=== PATIENT | male | born 1960 | race Caucasian/White ===

== ENCOUNTER 2016-12-27 21:19 | Emergency (ER) | payer OTHER ==
--- NOTE | ~2016-12-27 | CT4 ---
[facility] A Service of [facility] / [facility] RADIOLOGY TEXT RESULTS PATIENT: VLAD STEELE LOCATION: [facility] : 64 UNIT #: [id number] AGE: [address]: Airam Díaz MD SEX: M ORDER DR: [id number] [facility]. [place], [place] [address] [id number] MR#: [id number] Acc #: [id number] NAME: VLAD STEELE. : 1960 SEX: M STUDY DATE/TIME: 12/28/2016 0:05 UNIT: DEXTER ROOM: STUDY DESCRIPTION: CT Abd and Pelv Wo Cont Attending Physician: Airam Díaz M.D. Ordering Physician: Airam Díaz M.D. Primary Care Physician: No Primary Care Physician MEDICAL IMAGING REPORT This report is preliminary unless electronic signature is present EXAM CT scan of the abdomen and pelvis without contrast INDICATION Left-sided abdominal pressure and unable to urinate today. History of back surgery today. TECHNIQUE Axial 3 mm images were obtained through the abdomen and pelvis without IV or oral contrast. This CT exam was performed with one or more of the following radiation dose reduction techniques: Automatic exposure control, adjustment of mA and/or kV according to patient size, and iterative reconstruction. FINDINGS Lung bases are clear. The liver, gallbladder, spleen, pancreas, adrenal glands, and kidneys are normal in appearance. There are no ureteral stones. The aorta is normal in size. There is no adenopathy. The bowel is normal in appearance. The bladder has a Amaya catheter within it. The prostate gland is slightly enlarged. The bones are unremarkable. IMPRESSION 1. No urinary stones are grossly identified. 2. The bladder has a Amaya catheter within it. 3. Otherwise, the study is normal. Dictated by... Derek Mccormick M.D. THIS IS AN ELECTRONICALLY VERIFIED REPORT [facility] A Service of [facility] / [facility] RADIOLOGY TEXT RESULTS PATIENT: VLAD STEELE LOCATION: [facility] : 64 UNIT #: [id number] AGE: [address]: Airam Díaz MD SEX: M ORDER DR: Derek Mccormick M.D. at 12/28/2016 1:22 PM MARGA/troy TD: 12/28/2016 09:55 JOB #: [id number] MEDICAL IMAGING REPORT Page 1 of 1 COPY
[2016-12-27 22:58] LABS: URINE SOURCE CLEAN CATCH
[2016-12-27 23:05] LABS: URINE APPEARANCE CLEAR; URINE BILIRUBIN NEG (NEG); URINE BLOOD TRACE (NEG); URINE COLOR YELLOW; URINE GLUCOSE NEG (NEG); URINE KETONE NEG (NEG); URINE LEUKOCYTE ESTERASE NEG (NEG); URINE NITRATE NEG (NEG); URINE PROTEIN NEG (NEG); URINE SPECIFIC GRAVITY 1.008 (1.003-1.035); URINE UROBILINOGEN 0.2 MG/DL (NEG)
[2016-12-27 23:07] LABS: URBCS1 AUWI 0-2 /[HPF] (0-2); URINE BACTERIA AUWI NEG (NEGATIVE); URINE SQUAMOUS EPITHELIAL CELL OCC /[HPF]; UWBCS1 AUWI 0-2 (0-5)
[2016-12-27 23:16] LABS: CULTURE INDICATED? NO
== END 2016-12-28 01:21 | disposition home or self-care (01) ==
LOC: CED 21:19
PROVIDERS: Student in an Organized Health Care Education/Training Program
DX: R33.9 Retention of urine, unspecified (principal); Z98.890 Other specified postprocedural states
CPT/HCPCS: 51702; 74176; 81003; 99283